=== PATIENT | male | born 1965 | race Caucasian/White ===

== ENCOUNTER 2024-09-05 14:27 | Inpatient (IN) | payer OTHER ==
[2024-09-05 15:53] VITALS: BMI 21.7
[2024-09-05] MEDS ORDERED: BENZONATATE 200 MG CAPSULE PO PRN (17:15)
[2024-09-05] MEDS ORDERED: MAGNESIUM HYDROX 2400MG/30ML ORAL SUSPENSION 30 ML CUP PO PRN (17:15)
[2024-09-05] MEDS ORDERED: guaiFENesin 600 MG TABLET.ER (FP) PO PRN (17:15)
[2024-09-05] MEDS ORDERED: hydrOXYzine PAMOATE 25 MG CAPSULE (FP) PO PRN (17:15)
[2024-09-05] MEDS ORDERED: POLYETHYLENE GLYCOL (HEALTHYLAX) 3350 17 GM PACKET PO PRN (17:15)
[2024-09-05] MEDS ORDERED: LOPERAMIDE HCL 2 MG CAPSULE PO PRN (17:15)
[2024-09-05] MEDS ORDERED: NALOXONE (NARCAN) HCL 4 MG/0.1 ML SPRAY NS PRN (17:15)
[2024-09-05] MEDS ORDERED: MAG HYDROX/AL HYDROX/SIMETH 30 ML UNIT-DOSE CUP PO PRN (17:15)
[2024-09-05] MEDS ORDERED: IBUPROFEN 400 MG TABLET (FP) PO PRN (17:15)
[2024-09-05] MEDS: MELATONIN 5 MG TABLETS PO SCH (23:17)
[2024-09-05] MEDS: THIAMINE 100 MG TABLET PO SCH (23:17)
[2024-09-05] MEDS: TETRAHYDROZOLINE HCL EYE DROPS OU SCH (23:18)
[2024-09-06] MEDS: PRENATAL VITAMINS W/ FOLIC ACID TABLET (FP) PO SCH (09:14)
[2024-09-06 11:25] LABS: CHLORIDE 109 mmol/L (98-107); HEMATOCRIT 38.1 % (35.4-49); MCH 30.5 pg (25.7-33.7); MEAN CELL VOLUME 89.7 fl (80-96); MEAN PLT VOLUME 9.4 fl (7.5-11.1); PLATELET COUNT 176 10^3/uL (134-434); POTASSIUM 4.3 mmol/L (3.5-5.1); RBC 4.25 M/mm3 (4.00-5.60); RDW 15.1 % (11.9-15.9); SODIUM 139 mmol/L (136-145); WHITE BLOOD COUNT 7.1 K/mm3 (4.0-10.0)
[2024-09-06 11:27] LABS: ALBUMIN 3.3 g/dl (3.4-5.0); BLOOD UREA NITROGEN 15.8 mg/dL (7-18); CALCIUM 8.8 mg/dL (8.5-10.1)
[2024-09-06 11:28] LABS: ANION GAP 4 mmol/L (4-13); CO2 27 mmol/L (21-32); GLUCOSE,RANDOM 117 mg/dL (74-106)
[2024-09-06 11:31] LABS: SGOT/AST 7 U/L (15-37); SGPT/ALT 14 U/L (13-61)
[2024-09-06 11:33] LABS: BILIRUBIN,TOTAL 0.2 mg/dL (0.2-1); TOT PROT 6.3 g/dl (6.4-8.2)
[2024-09-06 11:34] LABS: ALK PHOS 97 U/L (45-117)
[2024-09-06 12:09] LABS: SYPHILIS W/ RPR CONF NON-REACTIVE (NONREACTIVE)
[2024-09-06] MEDS: MIRTAZAPINE 15 MG TABLET (FP) PO SCH (22:21)
[2024-09-10 11:59] LABS: URINE APPEARANCE Clear; URINE BILIRUBIN Negative (NEGATIVE); URINE COLOR Yellow; URINE GLUCOSE (UA) Negative (NEGATIVE); URINE KETONE Negative (NEGATIVE); URINE LEUK ESTERASE Negative (NEGATIVE); URINE NITRITE Negative (NEGATIVE); URINE PROTEIN Negative (NEGATIVE); URINE UROBILINOGEN 0.2 mg/dL (0.2-1.0)
[2024-09-10] MEDS: NICOTINE POLACRILEX 4 MG GUM BUC PRN (17:43)
[2024-09-10] MEDS: BENZOCAINE/MENTHOL (CHLORASEPTIC ) LOZENGE MM PRN (21:40)
[2024-09-11] MEDS: NICOTINE POLACRILEX 4 MG LOZENGE BC PRN (21:14)
[2024-09-11] MEDS: MIRTAZAPINE 15 MG TABLET (FP) PO SCH (21:14)
[2024-09-15] MEDS: guaiFENesin 200 MG/10 ML 10 ML UNIT-DOSE CUPS PO PRN (16:33)
[2024-09-18] MEDS: MELATONIN 5 MG TABLETS PO SCH (21:04)
[2024-09-18] MEDS: MIRTAZAPINE 30 MG TABLET PO SCH (21:04)
[2024-09-19] MEDS: traZODone HCL 50 MG TABLET (FP) PO SCH (21:19)
[2024-09-23] MEDS: traZODone HCL 50 MG TABLET (FP) PO SCH (21:06)
[2024-09-24] MEDS: traZODone HCL 100 MG TABLET (FP) PO SCH (21:09)
[2024-09-25] MEDS: BACLOFEN 10 MG TABLET (FP) PO SCH (21:04)
[2024-09-29 07:14] VITALS: RESP 16
[2024-09-29] MEDS: ACETAMINOPHEN 325 MG TABLET (FP) PO PRN (09:43)
[2024-09-29] MEDS: IBUPROFEN 600 MG TABLET (FP) PO PRN (18:00)
[2024-09-30 06:52] VITALS: BP 124/83; PULSE 90; TEMP 97.1
== END 2024-09-30 10:00 | disposition other institution (70) | DRG 772 ==
LOC: YASAS 14:27 → Y3NR 20:08 → Y5N 09-09 12:18
PROVIDERS: ADMIT Psychiatry & Neurology Pain Medicine; ATTEND Psychiatry & Neurology Pain Medicine
PROC: HZ42ZZZ Group Counseling for Substance Abuse Treatment, Cognitive-Behavioral (ICD-10-PCS; principal; 2024-09-05)
DX: F14.10 Cocaine abuse, uncomplicated (principal); F10.20 Alcohol dependence, uncomplicated; F12.20 Cannabis dependence, uncomplicated; F17.210 Nicotine dependence, cigarettes, uncomplicated; F64.0 Transsexualism; E11.9 Type 2 diabetes mellitus without complications; Z89.411 Acquired absence of right great toe; Z89.421 Acquired absence of other right toe(s); Z79.890 Hormone replacement therapy
CPT/HCPCS: 0241U-QW; 36415; 80053; 80305; 80307; 81003; 82962; 85027; 86780; 86803; 93005; 93010; J0475